=== PATIENT | male | born 1955 ===

== ENCOUNTER 2023-08-23 06:05 | Day surgery (SDC) | payer OTHER ==
[~2023-08-23] VITALS: Ht 170.2 cm; Wt 79.5 kg
[~2023-08-23 06:05] MED LIST: AMLO10 PO; ATORVASTATIN CA80 M1 PO; Aspir 8181 MG PO; INSULANI; JARDIANCE10 MG PO; LOSARTAN POTAS100 M1 PO; METO100ER PO; Norco 5-325 Ta1 EACH PO; OMEP20ER PO
[2023-08-23] MEDS ORDERED: OZEMPIC1 MG/0.72 SQ (06:23)
--- NOTE | 2023-08-23 07:04 | NUR ---
08/23/23 0704 Michelle Lema PREOP MEDICATIONS TYLENOL (1000MG) AND 10 MG OXYCONTIN ORDERED BY DR SEBASTIAN GIVEN PO.
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
--- NOTE | 2023-08-23 14:27 | NUR ---
08/23/23 1427 Villafana Bereket IV REMOVED INTACT. SITE WNL. PT INITIALLY REPORTED MILD DIZZINESS IN SDU. PT'S HEAD WAS LOWERED AND B/P CUFF WAS ADJUSTED. FOLLOWING CUFF ADJUSTMENT, PT'S MAP MAINTAINED >70. PT DENIED DIZZINESS THROUGH MOST OF SDU STAY AND UPON D/C. HE DENIED OTHER CARDIAC AND RESPIRATORY SYMPTOMS--INCLUDING SHORTNESS OF BREATH AND CHEST PAIN--THROUGHOUT STAY IN SDU, AND NONE WERE OBSERVED. PT WAS CALM AND TALKATIVE UPON D/C. HE DENIED PAIN/NAUSEA AND EXPRESSED READINESS TO RETURN HOME. HE EXPRESSED APPRECIATION FOR HIS CARE.
[2023-08-23 14:32] VITALS: BP 100/63
== END 2023-08-23 12:50 | disposition home or self-care (01) ==
LOC: ORSCSDS 06:05
PROVIDERS: Orthopaedic Surgery
PROC: 0RRJ00Z Replacement of Right Shoulder Joint with Reverse Ball and Socket Synthetic Substitute, Open Approach (ICD-10-PCS; principal; 2023-08-23 07:30)
DX: M12.811 Other specific arthropathies, not elsewhere classified, right shoulder (principal); I10 Essential (primary) hypertension; E11.22 Type 2 diabetes mellitus with diabetic chronic kidney disease; I12.9 Hypertensive chronic kidney disease with stage 1 through stage 4 chronic kidney disease, or unspecified chronic kidney disease; N18.30 Chronic kidney disease, stage 3 unspecified; Z79.4 Long term (current) use of insulin; E11.40 Type 2 diabetes mellitus with diabetic neuropathy, unspecified; Z79.899 Other long term (current) drug therapy; K21.9 Gastro-esophageal reflux disease without esophagitis
CPT/HCPCS: 73030; 82947; A9270; C1713; C1776; J0171; J0690; J0735; J1100; J1885; J2250; J2371; J2405; J2704; J2795; J3010; J7120

== ENCOUNTER 2023-09-01 18:29 | Emergency (ER) | payer OTHER ==
[~2023-09-01] VITALS: Ht 170.2 cm; Wt 77.9 kg
[~2023-09-01 18:29] MED LIST changes: +OZEMPIC1 MG/0.72 SQ
[2023-09-01 22:19] LABS: BASOPHILS ABSOLUTE AUTO 0.03 K/mm3 (0.00-0.23); BASOPHILS PERCENT AUTO 0 % (0-2); EOSINOPHILS ABSOLUTE AUTO 0.02 K/mm3 (0.00-0.68); EOSINOPHILS PERCENT AUTO 0 % (0-6); Hematocrit 44.1 % (37.0-53.0); Hemoglobin 14.9 g/dL (13.5-17.5); IMMATURE GRAN ABSOLUTE AUTO 0.04 K/mm3 (0.00-0.10); IMMATURE GRAN PERCENT AUTO 0 % (0-1); LYMPHOCYTES ABSOLUTE AUTO 0.75 K/mm3 (0.84-5.20); LYMPHOCYTES PERCENT AUTO 8 % (21-46); MONOCYTES ABSOLUTE AUTO 0.49 K/mm3 (0.16-1.47); MONOCYTES PERCENT AUTO 5 % (4-13); Mean Corpuscular HGB 30.9 pg (26.0-34.0); Mean Corpuscular HGB Conc 33.8 g/dL (31.5-36.5); Mean Corpuscular Volume 92 fL (80-100); NEUTROPHILS ABSOLUTE AUTO 7.98 K/mm3 (1.96-9.15); NEUTROPHILS PERCENT AUTO 86 % (41-73); Platelet Count 214 K/mm3 (150-400); RDW Coefficient Variation 13.6 % (11.7-14.2); RDW Standard Deviation 46.4 fL (35.1-46.3); Red Blood Cell Count 4.82 M/mm3 (4.30-5.90); White Blood Cell Count 9.31 K/mm3 (4.00-11.30)
[2023-09-01 22:40] LABS: Calcium, Blood 8.3 mg/dL (8.5-10.1); Creatinine, Blood 1.86 mg/dL (0.60-1.20); Potassium, Blood 4.7 mmol/L (3.5-5.5)
[2023-09-02 00:24] VITALS: BP 143/68
[2023-09-02 01:40] LABS: International Normalized Ratio 0.99; Prothrombin Time Results 10.4 Sec (9.7-11.5)
== END 2023-09-02 02:01 | disposition home or self-care (01) ==
LOC: ER 18:29
PROVIDERS: Emergency Medicine; Student in an Organized Health Care Education/Training Program
DX: M79.604 Pain in right leg (principal); M79.605 Pain in left leg; Z88.8 Allergy status to other drugs, medicaments and biological substances; Z79.899 Other long term (current) drug therapy; Z79.4 Long term (current) use of insulin; I12.9 Hypertensive chronic kidney disease with stage 1 through stage 4 chronic kidney disease, or unspecified chronic kidney disease; E11.22 Type 2 diabetes mellitus with diabetic chronic kidney disease; N18.30 Chronic kidney disease, stage 3 unspecified; E78.5 Hyperlipidemia, unspecified
CPT/HCPCS: 75635; 80048; 82550; 83605; 85025; 85520; 85610; 85730; 96374; 96375; 99284-25; A9270; J1644; J2270; J2405; Q9967

== ENCOUNTER → 2025-01-28 | Outpatient (CLI) | payer OTHER | END | disposition home or self-care (01) | LOC: LAB SHORT 09:11 → LAB 09:11 | DX: N18.9 Chronic kidney disease, unspecified (principal); G62.9 Polyneuropathy, unspecified; E27.40 Unspecified adrenocortical insufficiency; R10.819 Abdominal tenderness, unspecified site | CPT/HCPCS: 85651 ==